=== PATIENT | female | born 1965 | race Caucasian/White ===

== ENCOUNTER 2019-09-29 21:18 | Emergency (ER) | payer BC ==
[~2019-09-29] VITALS: Ht 165.1 cm; Wt 72.7 kg
--- NOTE | 2019-09-29 21:46 | NUR ---
Arrived for level 1 stroke with onset approx 2100 this evening. Pt was watching TV and suddenly developed a very severe stabbing pain above her right eye. P t says it was excrutiating. Currently it involves the teeth on the right side and the right tenriism region. She has slurring of speech, I see no motor weakness at this time.Pt denies taking any meds. Admits to daily smoking and drinking. There is no aphasia or sensory loss, no ataxia. There is an odor of alcohol on breath. Right face is pulled down, with residual right facial droop noted. 2199 Tele neuro exam completed with Dr Morris. [address] via [facility] for CTA head and neck. Pt feels headache has improved.
[2019-09-29 21:47] LABS: BASOPHILS # (AUTO) 0.1 X10'3 (0-0.2); BASOPHILS % (AUTO) 1.4 % (0-1); EOSINOPHILS # (AUTO) 0.2 X10'3 (0-0.9); EOSINOPHILS % (AUTO) 1.9 % (0-6); HEMATOCRIT 46.1 % (35.0-45.0); HEMOGLOBIN 16.3 g/dl (12.0-16.0); LYMPHOCYTES # (AUTO) 3.2 X10'3 (1.1-4.8); LYMPHOCYTES % (AUTO) 32.5 % (21-51); MEAN CORPUSCULAR HEMOGLOBIN 31.3 PG (27.0-31.0); MEAN CORPUSCULAR HGB CONC 35.3 g/dL (33.0-36.5); MEAN CORPUSCULAR VOLUME 88.5 FL (78-98); MEAN PLATELET VOLUME 9.7 FL (7.4-10.4); MONOCYTES % (AUTO) 9.7 % (2-12); NEUTROPHILS # (AUTO) 5.4 X10'3 (1.8-7.7); NEUTROPHILS % (AUTO) 54.5 % (42-75); PLATELET COUNT 236 X10'3 (140-440); RED CELL DISTRIBUTION WIDTH 13.4 % (11.5-14.5)
--- NOTE | 2019-09-29 21:55 | NUR ---
STROKE RN AT BEDSIDE DOING TELENEURO WITH MD AT THIS TIME.
[2019-09-29 21:56] LABS: PARTIAL THROMBOPLASTIN TIME 27 SECONDS (22-32)
[2019-09-29 21:58] LABS: ALANINE AMINOTRANSFERASE 36 U/L (12-78); ALBUMIN 3.9 G/DL (3.4-5.0); ALBUMIN/GLOBULIN RATIO 1.1 (1.1-1.5); ALKALINE PHOSPHATASE 102 IU/L (46-116); ANION GAP 14 (8-16); ASPARTATE AMINO TRANSFERASE 22 U/L (10-37); BILIRUBIN,TOTAL 0.7 MG/DL (0.1-1.0); BLOOD UREA NITROGEN 8 MG/DL (7-18); CALCIUM 9.3 MG/DL (8.5-10.1); CHLORIDE 103 MMOL/L (99-107); CREATININE 0.73 MG/DL (0.40-0.90); GLUCOSE 140 MG/DL (70-104); POTASSIUM 3.2 MMOL/L (3.5-5.1); SODIUM 141 MMOL/L (135-145); TOTAL CARBON DIOXIDE 23.7 MMOL/L (24-32); TOTAL PROTEIN 7.6 G/DL (6.4-8.2); eGFR 83 ML/MIN
[2019-09-29] MEDS ORDERED: iohexol 350MG/ML 100ml bottle IV ONE (22:01)
--- NOTE | 2019-09-29 22:19 | NUR ---
PT BACK TO CT WITH STROKE RN FOR CTA - AT THIS TIME TPA IS NOT INDICATED.
--- NOTE | 2019-09-29 22:45 | NUR ---
Standby assist up to bedside commode. Slow but steady, gait intact. 2300 Morphine 2mg IVP for headache pain, rated 5/10 currently, followed with Zofran 4mg IVP.
[2019-09-29] MEDS ORDERED: ondansetron/PF 4mg/2ml inj IV ONE (22:55)
[2019-09-29] MEDS ORDERED: morphine 2 MG/ML inj. syringe IV ONE (22:55)
[2019-09-29] MEDS ORDERED: NO HOME MEDS (23:27)
[2019-09-29 23:35] VITALS: BP 137/84
--- NOTE | 2019-09-29 23:44 | NUR ---
FAMILY PRESENT OUTSIDE ROOM - PT HAS BEEN UPDATED ON PLAN OF CARE. NO NEW ORDERS AT THIS TIME. WILL CONTINUE TO MONITOR. PAIN DECREASED TO 5/10 FROM 10/10
--- NOTE | 2019-09-30 00:54 | NUR ---
PT STATES HER SYMPTOMS HAVE ALMOST RESOLVED. FAMILY AGREES THAT HER SPEECH IS BACK TO NORMAL AND HER FACIAL DROOP IS PRETTY MUCH GONE. PT UPDATED ON PLAN OF CARE.
--- NOTE | 2019-09-30 01:18 | NUR ---
HOSPITALIST AT BEDSIDE FOR ADMISSION
== END 2019-09-30 01:54 | disposition home or self-care (01) ==
LOC: ER 21:19
DX: I63.9 Cerebral infarction, unspecified (principal); F17.200 Nicotine dependence, unspecified, uncomplicated
CPT/HCPCS: 36415; 70450; 70496; 70498; 71045; 80053; 85025; 85610; 85730; 86885; 86900; 86901; 93005; 96374; 96375; 99291; J2270; J2405; Q9967; 99285